=== PATIENT | male | born 1990 | race Hispanic/Latino ===

== ENCOUNTER 2018-11-16 05:30 | Day surgery (SDC) | payer OTHER, MEDICAID ==
[~2018-11-16] VITALS: Ht 157.5 cm; Wt 81.6 kg
[~2018-11-16 05:30] MED LIST: BENZ0.5T43 PO; DIASTAT PR; DIVA125T2 PO; ERGO500014 PO; FLUO60TA PO; FOLI1TAB15 PO; LORA0.5T2 PO; MELA5CAP PO; MELO-106 PO; METO25TA6 PO; RISP0.5T50 PO; TRIA10.8 NS; [UNRECOGNIZED DRUG - CODE] PO
[2018-11-16] MEDS ORDERED: SODIUM CHLORIDE 0.9% 1000ML 1,000 ML IV ONE (05:41)
[2018-11-16 06:02] VITALS: BP 122/72
[2018-11-16] MEDS ORDERED: PROPOFOL 10 MG/ML 20ML VIAL IV ONE (06:33)
[2018-11-16] MEDS ORDERED: LIDOCAINE HCL 1% 20 ML VIAL ONE (06:33)
[2018-11-16 06:47] VITALS: BP 94/42
[2018-11-16 06:53] VITALS: BP 101/56
[2018-11-16 06:59] VITALS: BP 102/58
[2018-11-16 07:05] VITALS: BP 121/61
== END 2018-11-16 07:15 | disposition home or self-care (01) ==
LOC: ENDO 05:30 → DAH 05:30 → ENDO 07:15
PROVIDERS: ATTEND Internal Medicine
DX: K29.50 Unspecified chronic gastritis without bleeding (principal); K22.8 Other specified diseases of esophagus; B96.81 Helicobacter pylori [H. pylori] as the cause of diseases classified elsewhere; K29.80 Duodenitis without bleeding; K21.0 Gastro-esophageal reflux disease with esophagitis; R13.10 Dysphagia, unspecified; K31.89 Other diseases of stomach and duodenum; F41.9 Anxiety disorder, unspecified; F31.9 Bipolar disorder, unspecified; E78.5 Hyperlipidemia, unspecified; M19.90 Unspecified osteoarthritis, unspecified site; Z98.890 Other specified postprocedural states; Z79.899 Other long term (current) drug therapy; K59.00 Constipation, unspecified; Z86.69 Personal history of other diseases of the nervous system and sense organs; F84.0 Autistic disorder; J45.909 Unspecified asthma, uncomplicated; G80.8 Other cerebral palsy; G40.909 Epilepsy, unspecified, not intractable, without status epilepticus
CPT/HCPCS: 43239; 43249; 88305; A4606; J2704; J7030

== ENCOUNTER 2019-12-10 05:54 | Day surgery (SDC) | payer OTHER, MEDICAID ==
[2019-12-10] VITALS (9 sets, daily range): BP systolic 120–140; BP diastolic 70–96
[~2019-12-10] VITALS: Ht 160 cm; Wt 85.7 kg
[~2019-12-10 05:54] MED LIST changes: -DIASTAT PR; +DIVA125C2 PO; -DIVA125T2 PO; +DOCU100C33 PO; +FLUO20CA35 PO; -FLUO60TA PO; -MELA5CAP PO; +POLY17PO4 PO; +PROCTOCM PR; -TRIA10.8 NS; +diazepam RC
[2019-12-10] MEDS ORDERED: SODIUM CHLORIDE 0.9% 1000ML 1,000 ML IV ONE (06:22)
[2019-12-10] MEDS ORDERED: LIDOCAINE HCL 1% 20 ML VIAL ONE (07:08)
[2019-12-10] MEDS ORDERED: PROPOFOL 10 MG/ML 20ML VIAL IV ONE (07:08)
== END 2019-12-10 08:10 | disposition home or self-care (01) ==
LOC: ENDO 05:54 → DAH 05:54 → ENDO 08:10
PROVIDERS: ATTEND Internal Medicine Gastroenterology
DX: K59.00 Constipation, unspecified (principal); R13.10 Dysphagia, unspecified; K62.89 Other specified diseases of anus and rectum; K29.70 Gastritis, unspecified, without bleeding; K21.9 Gastro-esophageal reflux disease without esophagitis; F41.9 Anxiety disorder, unspecified; F32.9 Major depressive disorder, single episode, unspecified; J45.909 Unspecified asthma, uncomplicated; F84.0 Autistic disorder; E78.5 Hyperlipidemia, unspecified; M19.90 Unspecified osteoarthritis, unspecified site; Z79.899 Other long term (current) drug therapy
CPT/HCPCS: 43239; 43248; A4215; A4221; A4222; A4223; A4606; A4620; A4663; C9803; J2704; J7030; U0003